=== PATIENT | female | born 1965 | race Caucasian/White ===

== ENCOUNTER 2021-09-20 17:53 | Emergency (ER) | payer SELFPAY ==
[~2021-09-20] VITALS: Ht 167 cm; Wt 81.0 kg
[2021-09-20] MEDS ORDERED: ONDANSETRON 4 MG/2 ML (SDV) Z0FRAN IV ONE (18:30)
[2021-09-20] MEDS ORDERED: NS IV 1000 ML 1,000 ML IV SCH (18:30)
[2021-09-20 18:36] LABS: HEMATOCRIT 49 % (35-52); HEMOGLOBIN 15.8 g/dL (11.5-16.0); MEAN CORPUSCULAR HEMOGLOBIN 28 pg (25-34); MEAN CORPUSCULAR HGB CONC 32 g/dL (32-36); MEAN CORPUSCULAR VOLUME 86 fL (80-99); PLATELET COUNT 308 10^3/uL (130-400)
[2021-09-20 18:37] LABS: BASOPHILS % (AUTO) 0 % (0-10); EOSINOPHILS # (AUTO) 0.1 10^3/uL (0.0-0.3); EOSINOPHILS % (AUTO) 2 % (0-10); LYMPHOCYTES # (AUTO) 1.9 X 10^3 (1.0-4.0); LYMPHOCYTES % (AUTO) 27 % (12-44); MEAN PLATELET VOLUME 9.7 fL (9.0-12.2); MONOCYTES # (AUTO) 0.4 X 10^3 (0.0-1.0); MONOCYTES % (AUTO) 6 % (0-12); NEUTROPHILS # (AUTO) 4.5 X 10^3 (1.8-7.8); NEUTROPHILS % (AUTO) 65 % (42-75)
[2021-09-20 18:41] LABS: INR 0.9 (0.8-1.4); PROTHROMBIN TIME PATIENT 12.6 SEC (12.2-14.7)
[2021-09-20 18:54] LABS: CHLORIDE 102 MMOL/L (98-107); POTASSIUM 3.6 MMOL/L (3.6-5.0); SODIUM 140 MMOL/L (135-145)
[2021-09-20 18:55] LABS: ALANINE AMINOTRANSFERASE 58 U/L (0-55); ALBUMIN 4.4 GM/DL (3.2-4.5); ALKALINE PHOSPHATASE 116 U/L (40-136); BILIRUBIN,TOTAL 0.5 MG/DL (0.1-1.0); BUN/CREATININE RATIO 15; CALCIUM 9.5 MG/DL (8.5-10.1); CARBON DIOXIDE 27 MMOL/L (21-32); CREATININE SERUM 0.87 MG/DL (0.60-1.30); GFR ESTIMATED 68; GLUCOSE 119 MG/DL (70-105); TOTAL PROTEIN 8.3 GM/DL (6.4-8.2)
[2021-09-20] MEDS ORDERED: METOCLOPRAMIDE INJ 10 MG/2 ML (REGLAN) IVP STA (19:16)
[2021-09-20] MEDS ORDERED: PANTOPRAZOLE 40 MG (PROTONIX) VIAL IV STA (19:16)
[2021-09-20] MEDS ORDERED: NS IV 1000 ML 1,000 ML IV STA (19:16)
--- NOTE | 2021-09-20 19:18 | ED General ---
General Chief Complaint: Abdominal/GI Problems Stated Complaint: N/D/V,WEAKNESS Nursing Triage Note: Patient has presented to ER with cc if diarrhea for the last 4 days. She reports a headache, some body aches, increased wheezing the past 4 days. Source of Information: Patient History of Present Illness Date Seen by Provider: Sep 20, 2021 Time Seen by Provider: 18:51 Initial Comments 56-year-old female presenting with complaints of over 4 days of diarrhea. She also reports having headache with body aches. She has increased wheezing and shortness of breath. She overall does not feel right and was unsure what was happening for her. She is visiting family here in [place] and she lives in [place]. She denies any fever, chills, pain with urination. She has had a mild diffuse headache. She has had generalized body aches. She has diffuse abdominal cramping with her diarrhea. She denies any blood in the diarrhea or seeing dark tarry stools. She also has some pain from her epigastric area going up into her chest. Severity: Moderate Associated Systoms: No Chest Pain; Cough; No Diaphoresis, No Fever/Chills; Headaches, Loss of Appetite, Malaise; No Nausea/Vomiting, No Rash, No Seizure, No Shortness of Air, No Syncope; Weakness (general) Allergies and Home Medications Allergies Coded Allergies: No Known Drug Allergies (Unverified , 09/20/21) Patient Home Medication List Home Medication List Reviewed: Yes Review of Systems Review of Systems Constitutional: see HPI EENTM: No ear pain, No epistaxis, No nose congestion, No throat pain Respiratory: cough (chronic cough with asthma and COPD), short of breath; No stridor; wheezing Cardiovascular: No chest pain, No edema, No palpitations, No syncope Gastrointestinal: abdominal pain (vague crampy pain in mid abdomen. Epigastric abdominal pain going up into chest); No constipation; diarrhea; No dysphagia, No hematemesis; heartburn; No jaundice; loss of appetite; No melena, No nausea, No vomiting Genitourinary: decreased output; No discharge Musculoskeletal: muscle pain (generalized body aches) Skin: No rash Psychiatric/Neurological: Headache; Denies Numbness, Denies Paresthesia; We akness (general) Hematologic/Lymphatic: Denies Blood Clots Past [id number]-Gnymld-Sfoyyo Hx Patient Social History Tobacco Use?: No Smoking Status: Former Smoker Use of E-Cig and/or Vaping dev: No Substance use?: Yes Substance type: Marijuana Alcohol Use?: No Pt feels they are or have been: No Past Medical History Surgery/Hospitalization HX: Hepatitis C, Asthma, COPD, Bipolar Physical Exam Vital Signs Vital Signs - First Documented 09/20/21 09/20/21 18:41 20:30 Temp 36.1 Pulse 97 Resp 86 B/P (MAP) 147/91 (109) Pulse Ox 96 O2 Delivery Room Air Capillary Refill : Height, Weight, BMI Height: '" Weight: lbs. oz. kg; 29.00 BMI Method: General Appearance: Anxious, Mild Distress Eyes: Bilateral Eye PERRL, Bilateral Eye EOMI HEENT: Moist Mucous Membranes; No Photophobia Neck: Full Range of Motion, Normal Inspection, Non Tender, Supple Respiratory: Chest Non Tender, Lungs Clear, Normal Breath Sounds, No Accessory Muscle Use, No Respiratory Distress Cardiovascular: Regular Rate, Rhythm, Normal Peripheral Pulses Gastrointestinal: Normal Bowel Sounds, No Pulsatile Mass, Non Tender, Soft Rectal: Deferred Extremity: Normal Capillary Refill, Normal Inspection, No Calf Tenderness, No Pedal Edema Neurologic/Psychiatric: Alert, Oriented x3, forest worker II-XII Norm as Tested Skin: Normal Color, Warm/Dry Focused Exam Lactate Level 09/20/21 16:30: Lactic Acid Level 1.29 Lactic Acid Level Laboratory Tests Test 09/20/21 16:30 Lactic Acid Level 1.29 MMOL/L (0.50-2.00) Progress/Results/Core Measures Suspected Sepsis SIRS Temperature: Pulse: 97 Respiratory Rate: Laboratory Tests 09/20/21 18:21: White Blood Count 7.0 Blood Pressure 147 /91 Mean: 109 09/20/21 16:30: Lactic Acid Level 1.29 Laboratory Tests 09/20/21 18:21: Creatinine 0.87, INR Comment 0.9, Platelet Count 308, Total Bilirubin 0.5 Results/Orders Lab Results Laboratory Tests Test 09/20/21 16:30 09/20/21 18:21 09/20/21 19:10 09/20/21 19:15 Range/Units Lactic Acid Level 1.29 0.50-2.00 MMOL/L White Blood Count 7.0 4.3-11.0 10^3/uL Red Blood Count 5.74 H 3.80-5.11 10^6/uL Hemoglobin 15.8 11.5-16.0 g/dL Hematocrit 49 35-52 % Mean Corpuscular Volume 86 80-99 fL Mean Corpuscular Hemoglobin 28 25-34 pg Mean Corpuscular Hemoglobin Concent 32 32-36 g/dL Red Cell Distribution Width 13.2 10.0-14.5 % Platelet Count 308 130-400 10^3/uL Mean Platelet Volume 9.7 9.0-12.2 fL Immature Granulocyte % (Auto) 0 % Neutrophils (%) (Auto) 65 42-75 % Lymphocytes (%) (Auto) 27 12-44 % Monocytes (%) (Auto) 6 0-12 % Eosinophils (%) (Auto) 2 0-10 % Basophils (%) (Auto) 0 0-10 % Neutrophils # (Auto) 4.5 1.8-7.8 X 10^3 Lymphocytes # (Auto) 1.9 1.0-4.0 X 10^3 Monocytes # (Auto) 0.4 0.0-1.0 X 10^3 Eosinophils # (Auto) 0.1 0.0-0.3 10^3/uL Basophils # (Auto) 0.0 0.0-0.1 10^3/uL Immature Granulocyte # (Auto) 0.0 0.0-0.1 10^3/uL Prothrombin Time 12.6 12.2-14.7 SEC INR Comment 0.9 0.8-1.4 Activated Partial Thromboplast Time 26 24-35 SEC Sodium Level 140 135-145 MMOL/L Potassium Level 3.6 3.6-5.0 MMOL/L Chloride Level 102 98-107 MMOL/L Carbon Dioxide Level 27 21-32 MMOL/L Anion Gap 11 5-14 MMOL/L Blood Urea Nitrogen 13 7-18 MG/DL Creatinine 0.87 0.60-1.30 MG/DL Estimat Glomerular Filtration Rate 68 BUN/Creatinine Ratio 15 Glucose Level 119 H 70-105 MG/DL Calcium Level 9.5 8.5-10.1 MG/DL Corrected Calcium 9.2 8.5-10.1 MG/DL Total Bilirubin 0.5 0.1-1.0 MG/DL Aspartate Amino Transf (AST/SGOT) 42 H 5-34 U/L Alanine Aminotransferase (ALT/SGPT) 58 H 0-55 U/L Alkaline Phosphatase 116 40-136 U/L Troponin I < 0.30 <0.30 NG/ML C-Reactive Protein 0.36 <0.50 MG/DL Total Protein 8.3 H 6.4-8.2 GM/DL Albumin 4.4 3.2-4.5 GM/DL Lipase 22 8-78 U/L Urine Color YELLOW Urine Clarity SL CLOUDY Urine pH 6.0 5-9 Urine Specific [place] 1.020 1.016-1.022 Urine Protein NEGATIVE NEGATIVE Urine Glucose (UA) NEGATIVE NEGATIVE Urine Ketones NEGATIVE NEGATIVE Urine Nitrite NEGATIVE NEGATIVE Urine Bilirubin NEGATIVE NEGATIVE Urine Urobilinogen 0.2 < = 1.0 MG/DL Urine Leukocyte Esterase 2+ H NEGATIVE Urine RBC (Auto) TRACE-I H NEGATIVE Urine RBC NONE /HPF Urine WBC 2-5 /HPF Urine Squamous Epithelial Cells 0-2 /HPF Urine Crystals PRESENT H /LPF Urine Calcium Oxalate Crystals MODERATE H /LPF Urine Bacteria TRACE /HPF Urine Casts NONE /LPF Urine Mucus NEGATIVE /LPF Urine Culture Indicated YES Urine Opiates Screen NEGATIVE NEGATIVE Urine Oxycodone Screen NEGATIVE NEGATIVE Urine Methadone Screen NEGATIVE NEGATIVE Urine Propoxyphene Screen NEGATIVE NEGATIVE Urine Barbiturates Screen NEGATIVE NEGATIVE Ur Tricyclic Antidepressants Screen NEGATIVE NEGATIVE Urine Phencyclidine Screen NEGATIVE NEGATIVE Urine Amphetamines Screen POSITIVE H NEGATIVE Urine Methamphetamines Screen POSITIVE H NEGATIVE Urine Benzodiazepines Screen NEGATIVE NEGATIVE Urine Cocaine Screen NEGATIVE NEGATIVE Urine Cannabinoids Screen POSITIVE H NEGATIVE Influenza Type A Antigen NEGATIVE NEGATIVE Influenza Type B Antigen NEGATIVE NEGATIVE My Orders Orders - MYNOR MCINTYRE MD Monitor-Rhythm Ecg Trace Only (09/20/21 18:18) Ed Iv/Invasive Line Start (09/20/21 18:18) Cbc With Automated Diff (09/20/21 18:18) Comprehensive Metabolic Panel (09/20/21 18:18) Crp Fs (09/20/21 18:18) Troponin I Fs (09/20/21 18:18) Protime With Inr (09/20/21 18:18) Partial Thromboplastin Time (09/20/21 18:18) Ns Iv 1000 Ml (Sodium Chloride 0.9%) (09/20/21 18:30) Ondansetron Injection (Zofran Injectio (09/20/21 18:30) Lipase (09/20/21 18:18) Drug Screen Stat (Urine) (09/20/21 18:18) Blood Culture (09/20/21 18:18) Lactic Acid Analyzer (09/20/21 18:18) Covid 19 Inhouse Test (09/20/21 19:16) Influenza A & B Antigens (09/20/21 19:16) Isolation Central Supply Req (09/20/21 19:16) Ns Iv 1000 Ml (Sodium Chloride 0.9%) (09/20/21 19:16) Pantoprazole Injection (Protonix Injecti (09/20/21 19:16) Metoclopramide Injection (Reglan Injecti (09/20/21 19:16) Albuterol Inhaler (Albuterol) (09/20/21 22:00) Albuterol Inhaler (Albuterol) (09/20/21 19:52) Ua Culture If Indicated (09/20/21 20:13) Urine Culture (09/20/21 19:10) Medications Given in ED Current Medications Medications Dose Ordered Sig/Alta Route Start Time Stop Time Status Last Admin Dose Admin Albuterol Sulfate 8.5 gm STK-MED ONCE IH 09/20/21 19:52 09/20/21 19:54 DC 09/20/21 20:00 8.5 GM Ondansetron HCl 4 mg ONCE ONCE IV 09/20/21 18:30 09/20/21 18:31 DC 09/20/21 18:38 4 MG Vital Signs/I&O 09/20/21 09/20/21 18:41 20:30 Temp 36.1 Pulse 97 Resp 86 B/P (MAP) 147/91 (109) 145/68 Pulse Ox 96 O2 Delivery Room Air Room Air Capillary Refill : Blood Pressure Mean: 109 Progress Note #1: Progress Note Obtain basic labs including CBC, chemistry, lactic acid, urinalysis, blood cultures, CRP. Give IV fluids for hydration. Zofran for nausea. Progress Note #2: Progress Note Blood work all stable without acute significant abnormality. Pt feeling better after fluids and treatment. Will send albuterol inhaler with pt since she is out of that at home. Give additional bag of IVF while waiting on UA and Uds. Try a dose of reglan to see if that helps with her epigastric pain going into her chest and the abdominal cramping pain. Progress Note #3: Progress Note Urine drug screen showed marijuana and methamphetamines. She admits to the marijuana but said that she does not use methamphetamines. Advised that could have been mixed in with her marijuana and she put nothing on it. Her urine had some leukocyte esterase with calcium crystals but patient was denying having frequency or pain. Will wait on culture to see if she would require any antibiotics. Advised patient to not use any more of the marijuana she has in case of had methamphetamines mixed in with it. Counseled on pushing fluids and rest. Use the inhaler to help with her breathing. Follow-up through the clinic if having continued concerns. Check back with her regular doctor in [place] when she returns home. The Covid swab if it is positive will be called to let her know Departure Impression Primary Impression: Diarrhea Qualified Codes: R19.7 - Diarrhea, unspecified Additional Impressions: Shortness of breath Person under investigation for COVID-19 Disposition: 01 HOME, SELF-CARE Condition: Stable Departure-Patient Inst. Decision time for Depature: 20:11 Referrals: NO,LOCAL PHYSICIAN (PCP/Family) Primary Care Physician Patient Instructions: COVID-19 Tests, Diarrhea, Adult ED Add. Discharge Instructions: Stay well hydrated and get plenty of rest. Follow up with clinic if you have continued symptoms or more problems All discharge instructions reviewed with patient and/or family. Voiced understanding. MYNOR MCINTYRE MD Sep 20, 2021 19:18
[2021-09-20 19:28] LABS: AMPHETAMINE SCREEN, URINE POSITIVE (NEGATIVE); BARBITURATE SCREEN URINE NEGATIVE (NEGATIVE); BENZODIAZEPINES SCREEN URINE NEGATIVE (NEGATIVE); CANNABINOID SCREEN, URINE POSITIVE (NEGATIVE); COCAINE SCREEN URINE NEGATIVE (NEGATIVE); METHADONE STAT NEGATIVE (NEGATIVE); METHAMPHETAMINE SCREEN URINE S POSITIVE (NEGATIVE); OPIATE SCREEN URINE NEGATIVE (NEGATIVE); OXYCODONE STAT NEGATIVE (NEGATIVE); PROPOXYPHENE STAT NEGATIVE (NEGATIVE); TRICYCLIC ANTIDEPRESSANTS SCRE NEGATIVE (NEGATIVE)
[2021-09-20] MEDS ORDERED: RT-ALBUTEROL HFA 8.5 GM INHALER IH ONE (19:52)
[2021-09-20 20:23] LABS: BILIRUBIN,URINE NEGATIVE (NEGATIVE); CLARITY,URINE SL CLOUDY; COLOR,URINE YELLOW; GLUCOSE, URINE (UA) NEGATIVE (NEGATIVE); KETONES,URINE NEGATIVE (NEGATIVE); LEUKOCYTE ESTERASE ,URINE 2+ (NEGATIVE); NITRITE,URINE NEGATIVE (NEGATIVE); PROTEIN,URINE NEGATIVE (NEGATIVE)
[2021-09-20 20:29] LABS: BACTERIA,URINE TRACE /HPF; CALCIUM OXALATE CRYSTALS,UR MODERATE /LPF; SQUAMOUS EPITHELIAL CELL,UR 0-2 /HPF
[2021-09-20 20:30] VITALS: BP 145/68
[2021-09-20] MEDS ORDERED: RT-ALBUTEROL HFA 8.5 GM INHALER IH SCH (22:00)
== END 2021-09-20 20:30 | disposition home or self-care (01) ==
LOC: ER FS 17:55
DX: R19.7 Diarrhea, unspecified (principal); R06.02 Shortness of breath; R05.3 Chronic cough; J44.9 Chronic obstructive pulmonary disease, unspecified; Z87.891 Personal history of nicotine dependence; Z20.822 Contact with and (suspected) exposure to COVID-19
CPT/HCPCS: 36415; 80053; 80306; 81000; 83605; 83690; 84484; 85025; 85610; 85730; 86141; 87040; 87088; 87636; 87804; 93041